=== PATIENT | male | born 1940 | race Caucasian/White ===

== ENCOUNTER 2016-06-23 12:27 | Emergency (ER) | payer OTHER ==
[~2016-06-23] VITALS: Ht 180.3 cm; Wt 61.2 kg
--- NOTE | 2016-06-23 12:47 | Emergency Room Report ---
History of Present Illness Time Seen by [id number] Presenting Problem in Triage Pt arrived:Walked Presenting Problem:FELL OFF A LADDER ( APPROX 4-6FT UP); INJURY TO FRONT OF HEAD AND BUE LEFT KNEE. AMBULATORY AFTERWARDS. NO LOC. 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 N Clinical Suspician of Infection? N Mental Status: 1 - Regular (Normal Baseline) Sepsis Risk:Low Sepsis Risk Have you (or family members/close friends) recently traveled outside the [place]? N If Yes, where/when: Have you had exposure to infectious disease within the past month? TB? Other? Specify: Comment The patient fell from a ladder this morning estimated height maximum 6 feet. He says that he mostly hit the ladder on the way down and most of his injuries are from that. He struck his head but had no loss of consciousness. He has a forehead abrasion. He denies headache. He had nausea but no vomiting. No visual disturbance. Denies neck pain. No chest or abdominal or back injury. He has a laceration on his RIGHT forearm and also pain in his RIGHT forearm. He has abrasions on his LEFT forearm but says he has no pain. He has a minimal contusion of his LEFT leg. He is not on any blood thinners. Last tetanus immunization less than 5 years ago. ALLERGIES Coded Allergies: No Known Allergies (06/23/16) History Medical History General Angina: No CO: No Hypertension? No Hyperlipidemia? No COPD? No Asthma? No CVA? No Seizures? No Diabetes? No GB Disease: No MRSA? No TB? No Cancer? No Immunization Hx Ped.Immunizations UTD Yes DT/Tetanus 1-4 Years Ago Surgical Hx Previous Surgery?Y APPY Social History Smoking Hx Smoker: Never Smoker Tobacco: No Type Cigarettes Are you/the child exposed to second-hand smoke: No Alcohol Alcohol: No Review of Systems All Other Systems Reviewed and Negative Respiratory denies shortness of breath Cardiovascular denies chest pain Gastrointestinal denies abdominal pain, nausea, denies vomiting Musculoskeletal denies back pain, denies neck pain Skin see HPI Psychiatric/Neurological denies headache, denies numbness, denies weakness Physical Exam Vital Signs Vital Signs Date Time Temp Pulse Resp B/P Pulse O2 O2 Flow FiO2 Ox Delivery Rate 06/23 1231 98.1 51 18 120/71 100 General Appearance normal appearance, WD/WN, sitting in wheelchair Eye Exam - bilateral eye normal exam, bilateral eye PERRL, bilateral eye EOMI Ear, Nose, Throat hearing grossly normal, normal ENT inspection, forehead abrasion, minimal abrasion over the nasal bones without tenderness, edema, ecchymosis, or deformity Neck normal inspection, non-tender, supple, full range of motion Respiratory Status Yes: trachea midline, chest symmetrical, non tender chest. No: respiratory distress. Lung Sounds bilateral: normal breath sounds, lungs clear. 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 No Results/Orders Current Medication Orders Sig/Efrain Start time Last Medication Dose Route Stop Time Status Admin Lidocaine/Epinephrine 0 .STK-MED ONE 06/23 1305 DC .ROUTE Lidocaine/Epinephrine 10 ML ONCE ONE 06/23 1245 DC SC 06/23 1246 Orders Procedure Date/time Status DIET-NOTHING BY MOUTH 06/[address] HEAD REQ 06/[address] SCAN REQUEST 06/23 1239 Active XRAY/CT/US XRAY/CT/US XRAY forearm Comment Interpreted by Alyssa Fitch MD. Negative for fracture, dislocation, or foreign body. CT head, C-spine Comment CT scan interpreted by radiologist: Cervical spine: Degenerative changes, no acute fracture or dislocation Head: No acute process Procedures Laceration/Wound Repair Progress Laceration Repair Performed by: ALYSSA FITCH Consent: Verbal consent obtained. Risks and benefits: risks, benefits and alternatives were discussed Consent given by: patient Patient identity confirmed: verbally with patient Laceration location: RIGHT forearm Laceration length: 3 cm Local anesthetic: 1 percent lidocaine with epinephrine Wound prep: Sterilly scrubbed with Hibiclens and irrigated with copious normal saline. Draping: Sterile in usual manner Patient sedated: no Debridement: minimal Exploration: No foreign body or deep structure injury found Layers Closed: Skin Suture material: 5-0 Prolene Number of sutures: 5 Repair complexity: Simple Patient tolerance: Patient tolerated the procedure well with no immediate complications Departure Departure Disposition DC Home or Self Care(routine) Clinical Impression Primary Impression: Forehead contusion Qualifiers: Encounter type: initial encounter Qualified Code: S00.83XA - Contusion of other part of head, initial encounter Secondary Impressions: Abrasion of left arm Qualifiers: Encounter type: initial encounter Qualified Code: S40.812A - Abrasion of left upper arm, initial encounter Forehead abrasion Qualifiers: Encounter type: initial encounter Qualified Code: S00.81XA - Abrasion of other part of head, initial encounter Laceration of right forearm Qualifiers: Encounter type: initial encounter Qualified Code: S51.811A - Laceration without foreign body of right forearm, initial encounter Condition STABLE Patient Instructions DI for Abrasion, DI for Closed Head Injury, DI for Laceration Repair Additional Instructions Tylenol or ibuprofen for pain Additional instructions for HEAD INJURY: See your physician as soon as possible for further evaluation. Return immediately if severe headache, vomiting, problems with vision or speech, numbness or weakness of the extremities, or severe neck pain. Additional instructions for LACERATION: Clean the wound daily with soap and water. You may shower. Apply a dry bandage after cleansing the area. Avoid submerging the wound, no swimming. See your primary care physician or return in 10 days for suture removal. Return if any signs of infection including increasing pain, pus drainage, swelling, redness, red streaks, or fever. ED Critical Care Critical Care No at [id number]
--- NOTE | 2016-06-23 14:08 | RADIOLOGY REPORT PS360 ---
CT HEAD W/O CONTRAST HISTORY: Headache, lightheaded since fall. Head injury, contusion, hematoma FALL ORDERING PHYSICIAN: Liam Kern MD PATIENT AGE: 75 years COMPARISON: None TECHNIQUE: Axial images obtained without contrast. Brain and bone windows reviewed. FINDINGS: No midline shift, mass effect, intracranial hemorrhage, hydrocephalus, or extra-axial fluid collection is evident. There is mild generalized atrophy. Small scalp contusion noted in the frontal area centrally. The calvarium has an unremarkable appearance. No mastoid effusion. The visualized paranasal sinuses are unremarkable. IMPRESSION: No acute intracranial pathology.
--- NOTE | 2016-06-23 14:11 | RADIOLOGY REPORT PS360 ---
CT CERVICAL SPINE W/O CONT INDICATION: Neck pain following injury FALL ORDERING PHYSICIAN: Liam Kern MD PATIENT AGE: 75 years COMPARISON: None TECHNIQUE: Axial images are obtained without contrast. Sagittal and coronal reformatted images are reviewed as well. FINDINGS: No fracture or dislocation is evident. There is slight reversal cervical lordosis which may be due to patient positioning or muscle spasm. There is degenerative disc disease at C5-C6 and mild degenerative disc disease at C6-C7. Subcortical cystic changes present in the uncovertebral region on the left at T1. There is gas in this region consistent with extruded gas from the adjacent costal vertebral joint on the left at T1. No acute finding in the upper chest. The aortic arch is somewhat prominent at 3.2 cm. IMPRESSION: 1. No acute fracture. 2. Degenerative disc disease C5-C6 and degenerative changes at the left uncovertebral area of T1. 3. Reversal lordosis which may be due to positioning or muscle spasm
--- NOTE | 2016-06-23 14:13 | RADIOLOGY REPORT PS360 ---
FOREARM-RT HISTORY: Post traumatic pain fell ORDERING PHYSICIAN: Liam Kern MD PATIENT AGE: 75 years COMPARISON: None FINDINGS: No obvious fracture, dislocation, lytic change or blastic change. Normal mineralization. Unremarkable soft tissues IMPRESSION: Negative forearm
[2016-06-23 14:49] VITALS: BP 130/75
== END 2016-06-23 14:49 | disposition home or self-care (01) ==
LOC: ER 12:27
PROC: 0HQDXZZ Repair Right Lower Arm Skin, External Approach (ICD-10-PCS; principal; 2016-06-23)
DX: S00.83XA Contusion of other part of head, initial encounter (principal); S50.811A Abrasion of right forearm, initial encounter; S00.81XA Abrasion of other part of head, initial encounter; W11.XXXA Fall on and from ladder, initial encounter